=== PATIENT | female | born 1955 | race Caucasian/White ===

== ENCOUNTER 2016-12-01 05:18 | Outpatient (CLI) | payer OTHER ==
[~2016-12-01] VITALS: Ht 157.5 cm; Wt 83.4 kg
--- NOTE | ~2016-12-01 | HEMODYNAMI ---
PATIENT:ANU RUCKER MEDICAL RECORD: [id number] : 55 LOCATION:[facility] ADMISSION DATE: 12/01/16 Generatedon:12/01/201611:31 Patient name: ANU RUCKER Patient #: [id number] SSN: : Date of study: 12/01/2016 Page: Of Hemodynamic Procedure Report Patient Data Patient Demographics Procedure consent was obtained First Name: ANU Gender: Female Last Name: : 1955 Middle Initial: D Age: 61 year(s) Patient #: [id number] Race: Additional ID: [id number] Contact details Address: [address] [address] State: [place] City: [place] Zip code: [address] Past Medical History Allergies Allergen Reaction Date Comments Reported Other allergy 08/09/2015 NSAIDS, PCN Admission Admission Data Admission Date: 12/01/2016 Admission Time: 5:18 Procedure Procedure Types Cath Procedure Peripheral Cath Diagnostic Procedure Miscellaneous Procedure Description Procedure Date Procedure Date: 12/01/2016 Procedure Start Time: 8:37 Procedure Staff Name Function Felipe Bustillos MD Performing Physician Laverne David RT Scrub Alyssia Rucker RN Nurse Deirdre Lui RN Nurse Christophe Davis RT Monitor Procedure Data Cath Procedure Fluoroscopy Diagnostic fluoroscopy Total fluoroscopy Time: time: 25.2 min 25.2 min Diagnostic fluoroscopy Total fluoroscopy dose: 849 dose: 849 mGy mGy Contrast Material Contrast Material Type Amount (ml) Isovue 300 88 Entry Location Entry Primary Successful Side Size Upsize 1 Upsize Entry Closure Brown ccessful Closure Location (Fr) (Fr) 2 (Fr) Remarks Device Remarks Femoral Right 5 Fr 6 Fr Exoseal artery Mid-Length Diagnostic catheters Device Type Used For End Catheter Placement Diagnostic 5Fr IMT Catheter Procedure Medications Medication Administration Route Dosage Fentanyl I.V. 50 mcg Versed I.V. 1 mg Heparin Bolus I.V. 5000 units Fentanyl I.V. 50 mcg Versed I.V. 1 mg Nitroglycerin IC/IA I.A. 250 mcg Nitroglycerin IC/IA I.A. 200 mcg Fentanyl I.V. 50 mcg Versed I.V. 1 mg Fentanyl I.V. 50 mcg Versed I.V. 1 mg Heparin Bolus I.V. 2000 units Nitroglycerin IC/IA I.A. 300 mcg Hemodynamics Rest Heart Rate: 67 (bpm) Snapshots Pre Cath Intra NCS Post Cath Vital Signs Time Heart Resp SPO2 NIBP (mmHg) Rhythm Pain Sedation Rate (ipm) (%) Status Level (bpm) 8:18:03 68 17 99 153/84(143) NSR 0 (11) 10(A) , No pain 8:22:19 94 23 99 141/85(119) NSR 0 (11) 10(A) , No pain 8:26:28 68 25 98 141/87(125) NSR 0 (11) 10(A) , No pain 8:30:36 69 23 99 139/92(122) NSR 0 (11) 10(A) , No pain 8:34:46 70 24 99 146/86(123) NSR 0 (11) 10(A) , No pain 8:39:00 76 15 98 139/119(135) NSR 0 (11) 10(A) , No pain 8:43:10 74 23 96 152/91(132) NSR 0 (11) 9(A) , No pain 8:47:24 71 23 94 149/92(131) NSR 0 (11) 9(A) , No pain 8:51:36 70 26 94 143/87(117) NSR 0 (11) 9(A) , No pain 8:55:50 72 22 93 142/80(124) NSR 0 (11) 9(A) , No pain 9:00:02 69 18 97 142/87(119) NSR 0 (11) 10(A) , No pain 9:04:12 74 16 94 150/96(122) NSR 0 (11) 9(A) , No pain 9:08:28 71 14 94 137/84(116) NSR 0 (11) 9(A) , No pain 9:12:40 70 14 96 133/78(108) NSR 0 (11) 9(A) , No pain 9:16:47 72 15 96 137/85(117) NSR 0 (11) 9(A) , No pain 9:20:59 70 16 96 129/80(100) NSR 0 (11) 9(A) , No pain 9:25:09 69 16 97 130/79(110) NSR 0 (11) 9(A) , No pain 9:29:19 67 15 96 126/77(109) NSR 0 (11) 9(A) , No pain 9:33:25 68 16 97 125/82(104) NSR 0 (11) 9(A) , No pain 9:37:33 66 15 97 132/77(109) NSR 0 (11) 9(A) , No pain 9:41:43 66 14 97 128/78(102) NSR 0 (11) 9(A) , No pain 9:45:46 71 22 97 147/98(119) NSR 0 (11) 9(A) , No pain 9:49:58 74 21 96 159/102(137) NSR 0 (11) 9(A) , No pain 9:54:14 73 18 96 168/96(143) NSR 0 (11) 9(A) , No pain 9:58:33 72 13 95 154/99(134) NSR 0 (11) 9(A) , No pain 10:02:48 72 14 94 142/87(119) NSR 0 (11) 9(A) , No pain 10:06:58 69 14 95 150/89(112) NSR 0 (11) 9(A) , No pain 10:11:14 68 14 94 136/86(110) NSR 0 (11) 9(A) , No pain 10:15:24 66 13 94 142/84(120) NSR 0 (11) 9(A) , No pain 10:19:36 67 15 94 143/84(119) NSR 0 (11) 9(A) , No pain 10:23:48 69 15 95 144/84(121) NSR 0 (11) 9(A) , No pain 10:28:02 66 15 94 135/85(111) NSR 0 (11) 9(A) , No pain 10:32:12 68 15 96 143/86(116) NSR 0 (11) 9(A) , No pain 10:36:24 67 14 96 139/86(120) NSR 0 (11) 9(A) , No pain 10:40:34 66 14 97 146/87(125) NSR 0 (11) 9(A) , No pain 10:44:46 65 14 97 149/92(129) NSR 0 (11) 9(A) , No pain 10:48:58 63 15 98 152/92(130) NSR 0 (11) 9(A) , No pain 10:53:10 76 21 98 164/97(137) NSR 0 (11) 9(A) , No pain 10:57:26 72 23 96 169/101(143) NSR 0 (11) 9(A) , No pain 11:01:44 74 22 96 161/98(132) NSR 0 (11) 9(A) , No pain 11:06:00 71 21 97 170/102(136) NSR 0 (11) 10(A) , No pain 11:10:20 77 19 97 166/102(145) NSR 0 (11) 10(A) , No pain 11:14:38 78 19 96 181/113(142) NSR 0 (11) 10(A) , No pain 11:19:00 80 24 95 172/98(135) NSR 0 (11) 10(A) , No pain 11:23:20 73 24 96 168/100(136) NSR 0 (11) 10(A) , No pain 11:27:38 96 171/109(145) NSR 0 (11) 10(A) , No pain Medications Time Medication Route Dose Verified Delivered Reason Notes Ef fectiveness by by 8:37:00 Fentanyl I.V. 50 Deirdre Deirdre for sedation mcg Sania Lui RN RN 8:37:08 Versed I.V. 1 mg Deirdre Deirdre for sedation Sania Lui RN RN 8:58:34 Heparin Bolus I.V. 5000 Deirdre Deirdre for units Sania zhu RN RN 9:01:20 Fentanyl I.V. 50 Deirdre Deirdre for sedation mcg Sania Lui RN RN 9:01:29 Versed I.V. 1 mg Deirdre Deirdre for sedation Sania Lui RN RN 9:16:52 Nitroglycerin I.A. 250 Deirdre Felipe for IC/IA mcg Sania Bustillos anticoagulation MYLA CESPEDES 9:28:03 Nitroglycerin I.A. 200 Deirdre Felipe for IC/IA mcg Sania Bustillos anticoagulation MYLA CESPEDES 9:44:59 Fentanyl I.V. 50 Deirdre Deirdre for sedation mcg Sania Lui RN, RN 9:45:10 Versed I.V. 1 mg Deirdre Felipe for sedation Sania Bustillos RN, MD 9:53:18 Fentanyl I.V. 50 Deirdre Deirdre for sedation mcg Sania Lui RN RN 9:53:38 Versed I.V. 1 mg Deirdre Deirdre for sedation Sania Lui RN RN 10:21:55 Heparin Bolus I.V. 2000 Deirdre Deirdre for units Sania Lui anticoagulation RN MYLA 10:24:19 Nitroglycerin I.A. 300 Deirdre Felipe for IC/IA mcg Sania Bustillos anticoagulation MYLA CESPEDES Procedure Log Time Note 7:59:19 Alyssia Rucker RN sent for patient. Start room use. 7:59:29 Time tracking: Regular hours 7:59:34 Plan of Care:Hemodynamics will remain stable., Cardiac rhythm will remain stable., Comfort level will be maintained., Respiratory function will remain adequate., Patient/ family verbilizes understanding of procedure., Procedure tolerated without complication., Recovers from procedure without complications.. 7:59:42 Patient received from Outpatients to IR Alert and oriented. Tansferred to table in Supine position. 7:59:43 Correct patient and procedure confirmed by team. 7:59:45 Signed procedure consent form obtained from patient. 7:59:46 ECG and BP/O2 sat monitors applied to patient. 7:59:48 Full Disclosure recording started 7:59:49 - 7:59:52 H&P Date Dictated: 12/01/2016 H&P Addendum completed by physician on day of procedure. (MUST COMPLETE FOR ALL OUTPATIENTS). 7:59:52 Pre-procedure instructions explained to patient. 7:59:53 Pre-op teaching completed and patient verbalized understanding. 7:59:55 Family unavailable. 7:59:56 Patient NPO since Midnight. 8:00:01 Is the patient allergic to Iodine/contrast media? No. 8:00:12 Is patient on blood thinner?No 8:00:14 Patient diabetic? Yes. 8:00:15 - 8:00:16 ----Pre-sedation anethsthesia assessment.---- 8:00:19 Previous problem with sedation/anesthesia? No ? 8:00:23 Snore? Yes 8:00:25 Sleep apnea? No 8:00:26 Deviated septum? No 8:00:28 Opens mouth fully? No 8:00:29 Sticks out tongue? Yes 8:00:34 Airway obstruction? Yes copd 8:00:39 Dentures? Yes out 8:00:53 Pre procedure: right dorsailis pedis pulse Doppler 8:00:55 Pre procedure: left dorsailis pedis pulse Doppler 8:00:58 Pre procedure: right posterior tibial pulse Doppler 8:01:01 Pre procedure: left posterior tibial pulse Doppler 8:01:07 Patient pain scale 0/10 no pain. 8:01:18 Use device set IR Diagnostic 8:01:19 Sterile Angiographic Pack opened to sterile field. 8:01:19 Bag Decanter opened to sterile field. 8:01:20 Acist Manifold opened to sterile field. 8:01:21 Acist Hand Control opened to sterile field. 8:01:22 Acist Syringe opened to sterile field. 8:13:38 Sharps counted by scrub and verified by R.N. 8:13:39 Alarms reviewed by R. N. 8:13:42 Bilateral groins area was prepped with chlora-prep and draped in steril e fashion 8:16:55 Vital chart was started 8:16:56 Baseline sample Acquired. 8:17:00 Rhythm: sinus rhythm 8:36:03 Sedation plan: IV Moderate Sedation Versed, Fentanyl 8:36:41 Physician arrived 8:36:42 --------ALL STOP TIME OUT------ 8:36:44 Final Timeout: patient, procedure, and site verified with staff and physician. All members of the team are in agreement. 8:36:46 Bilateral groins site verified by team. 8:36:59 Physical assessment completed. ASA score P 3 - A patient with severe systemic disease as per Felipe Bustillos MD. 8:37:00 Fentanyl 50 mcg I.V. was administered by Deirdre Lui RN; for sedation; 8:37:08 Versed 1 mg I.V. was administered by Deirdre Lui RN; for sedation; 8:37:46 Procedure started. 8:37:54 Local anesthetic to right femoral artery with Lidocaine 1% by Felipe Bustillos MD.INITIAL ACCESS ONLY 8:40:41 A 5 Fr sheath was inserted into the Right Femoral artery 8:40:45 St Jc 5FR Sheath opened to sterile field. 8:40:47 Cook BENTSON 145cm guide wire opened to sterile field. 8:40:47 Micropuncture VSI 4FR kit opened to sterile field. 8:40:48 TUBING, CONTRAST INJCTN HI PRES opened to sterile field. 8:40:49 Cook BARNEY 260 guide wire opened to sterile field. 8:49:15 Sheath upsized to a 6 Fr Mid-Length. 8:49:32 Terumo 6Fr [place] Destination Sheath opened to sterile field. 8:49:36 A Diagnostic 5Fr IMT Catheter was advanced over the wire and used for . 8:53:32 BasixTOUCH Inflation Syringe opened to sterile field. 8:56:33 CXI SUPPORT .035 135 CM STR catheter opened to sterile field. 8:58:34 Heparin Bolus 5000 units I.V. was administered by Deirdre Lui RN; for anticoagulation; 9:01:20 Fentanyl 50 mcg I.V. was administered by Deirdre Lui RN; for sedation; 9:01:29 Versed 1 mg I.V. was administered by Deirdre Lui RN; for sedation; 9:06:16 Terumo ANGLE 260cm glide wire opened to sterile field. 9:10:43 [place] Sci Choice PT Extra Support J 300cm .014 gu opened to sterile field. 9:14:44 Turbohawk 1 Small Atherectomy catheter opened to sterile field. 9:16:52 Nitroglycerin IC/IA 250 mcg I.A. was administered by Felipe Bustillos MD; for anticoagulation; 9:28:03 Nitroglycerin IC/IA 200 mcg I.A. was administered by Felipe Bustillos MD; for anticoagulation; 9:36:32 Inflation number: 1 A IN.PACT Admiral 5 x 150 balloon was prepped and advanced across the Distal Superficial Femoral, Right, then inflated to 0 LISA for 0:00 (min:sec). 9:44:59 Fentanyl 50 mcg I.V. was administered by Deirdre Lui RN; for sedation; 9:45:10 Versed 1 mg I.V. was administered by Felipe Bustillos MD; for sedation; 9:48:07 Inflation number: 1 A IN.PACT Admiral 6 x 150 balloon was prepped and advanced across the Mid Superficial Femoral, Right, then inflated to 0 LISA for 0:00 (min:sec). 9:52:30 Inflation number: 1 A IN.PACT Admiral 6.0 x 80 x 135 DCB Balloon was prepped and advanced across the Proximal Superficial Femoral, Right, then inflated to 0 LISA for 0:00 (min:sec). 9:53:18 Fentanyl 50 mcg I.V. was administered by Deirdre Lui RN; for sedation; 9:53:38 Versed 1 mg I.V. was administered by Deirdre Lui RN; for sedation; 10:03:01 Zilver PTX 6 x 60 stent was deployed across Mid Superficial Femoral, Right . 10:21:55 Heparin Bolus 2000 units I.V. was administered by Deirdre Lui RN; for anticoagulation; 10:24:19 Nitroglycerin IC/IA 300 mcg I.A. was administered by Felipe Bustillos MD; for anticoagulation; 10:26:45 Copilot Bleedback Control Valve opened to sterile field. 10:36:34 Zilver PTX 6 x 100 stent was deployed across Proximal Superficial Femoral, Right . 10:40:18 Inflation number: 2 A Saber 5.0 X 4 X 150 balloon was prepped and advanced across the Mid Superficial Femoral, Right, then inflated to 0 LISA for 0:00 (min:sec). 10:47:48 St Jc 6Fr sheath opened to sterile field. 10:48:22 MYNX GRINDER NEEDLE TIP 6FR/7FR opened to sterile field. 10:50:31 Sheath removed intact; hemostasis achieved with Exoseal to the Right Femoral artery. 10:50:34 Procedure ended.(Physican Out) 10:52:41 Fluoroscopy time 25.20 minutes. 10::47 Fluoroscopy dose: 849 mGy 10::47 Flurop Dose total: 849 10::52 Contrast amount:Isovue 300 88ml. 10:52:54 Sharps counted by scrub and verified by R.N. 10:53:02 Insertion/operative site no bleeding no hematoma. 10:53:18 Post-op/insertion site Left Femoral artery dressed using a 4 x 4 and Tegaderm. 10:53:26 Post left femerol artery:stable 10:53:28 Post Procedure Pulses reassessed and unchanged 10:53:32 Post-procedure physical assessment completed. ASA score P 3 - A patient with severe systemic disease as per Felipe Bustillos MD. 10:53:35 Post procedure rhythm: unchanged. 11:29:36 Post procedure instruction explained to patient.Patient verbalizes understanding. 11:29:37 Procedure and supply charges have been captured, reviewed, submitted an d are correct. 11:29:40 Report given to [facility]. 11:29:43 Patient transfered to [facility] with Bed. 11:31:36 Vital chart was stopped Intervention Summary Intervention Notes Time ActionType Lesion and Equipment Action# Pressure Duration Attributes Used 9:36:32 Inflate Distal IN.PACT 1 0 00:00 balloon Superficial Admiral 5 Femoral, x 150 Right balloon 9:48:07 Inflate Mid IN.PACT 1 0 00:00 balloon Superficial Admiral 6 Femoral, x 150 Right balloon 9:52:30 Inflate Proximal IN.PACT 1 0 00:00 balloon Superficial Admiral Femoral, 6.0 x 80 Right x 135 DCB Balloon 10:03:01 Deploy self Mid Zilver 1 expanding Superficial PTX 6 x stent Femoral, 60 stent Right 10:36:34 Deploy self Proximal Zilver 1 expanding Superficial PTX 6 x stent Femoral, 100 stent Right 10:40:18 Inflate Mid Saber 5.0 2 0 00:00 balloon Superficial X 4 X 150 Femoral, balloon Right Device Usage Item Name Manufacture Quantity Catalog Number Hospital Part [facility] nimal Lot# / Charge Number Stock Stock Serial# Code Sterile Hungry Horse 1 [id number] [id number] 5 Angiographic Health Pack Bag Decanter Microtek 1 2001S 220227 93022 423336 5 Medical Inc. Acist Acist 1 16612 701777 275524 164669 5 Manifold Medical Systems Inc Acist Hand Acist 1 92048 005272 167098 711922 5 Control Medical Systems Inc Acist Syringe Acist 1 65816 773817 992756 994175 [address] Jc 1 266157 975466 813694 5 [id number] Sheath [facility] 1 L44635 917620 065951 5 [id number] 145cm guide wire Micropuncture VSI VASCULAR 1 7266V 898332 937272 5 VSI 4FR kit SOLUTIONS TUBING, Merit 1 [id number] 216563 254884 400200 5 CONTRAST Medical INJCTN HI PRES [facility] [place] [place] 1 J05545 851039 991323 5 [id number] 260 guide wire Terumo 6Fr Terumo 1 RSR01 227998 34105 237820 5 [place] Destination Sheath Diagnostic [place] 1 [id number] 627188 232483 07258 5 5Fr IMT Scientific Catheter BasixTOUCH Merit 1 QJ6424 815480 849719 618086 5 [id number] Inflation Medical Syringe CXI SUPPORT [facility] 1 L60249 626488 092429 5 [id number] .035 135 CM STR catheter Terumo ANGLE Terumo 1 QX2112 317949 342827 092744 5 260cm glide wire [place] Sci [place] 1 [id number] 691097 331721 234688 5 [id number] Choice PT Scientific Extra Support J 300cm .014 gu Turbohawk 1 Ev3 1 H1-S 578016 0734205 697869 5 Small Atherectomy catheter IN.PACT Medtronic 1 [id number] 412638 8853673 175553 5 [id number] Admiral 5 x 150 balloon IN.PACT Medtronic 1 [id number] 912659 9138307 005673 5 [id number] Admiral 6 x 150 balloon IN.PACT Medtronic 1 [id number] 491580 854595 699162 5 [id number] Admiral 6.0 x 80 x 135 DCB Balloon Zilver PTX 6 [facility] 1 G67646 021304 605674 721859 5 [id number] x 60 stent Copilot [place] 1 6239881 094396 843712 872202 5 Bleedback Vascular Control Valve Zilver PTX 6 [facility] 1 O27470 275950 200532 455423 5 [id number] x 100 stent Saber 5.0 X 4 Cardinal 1 [id number] 797594 517425 5 X [address] Jc [address] St Jc 1 028642 249888 185294 5 [id number] sheath MYNX GRINDER NEEDLE TIP Access 1 OU7735 672897 237429 5 [id number] 6FR/7FR Closure Signature Audit [place] Stage Time Signature Unsigned Intra-Procedure 12/01/2016 Christophe 11:31:33 AM Ryan RT (R) (CV) Signatures Monitor : Christophe Signature : Ryan RT Date : Time : [id number] [place] [address]
[~2016-12-01 05:18] MED LIST: ASPIRIN81 MG PO; BENZONATATE200 MG PO; CHERATUSSIN AC473 ML PO; IPRAT-ALBUT 0.5-3 ML UPD; LOPRESSOR25 MG PO; MIRAPEX0.5 MG PO; NICODERM C1 PATCH .3 TRANSDERM; PLAVIX75 MG PO; PRAVACHOL20 MG PO; PREDNISONE50 MG PO; PRILOSEC20 MG PO; SINGULAIR10 MG PO; STERAPRED 5MG 125 MG PO; VENTOLIN HFA18 GM INH; VIBRAMYCIN 100100 MG PO; ZESTRIL40 MG PO
[2016-12-01 06:30] LABS: BASOPHILS 0.2 % (0.0-2.0); EOSINOPHILS 0.1 % (0-7); HEMATOCRIT 44.6 % (36.0-48.0); IMMATURE GRANULOCYTES 0.4 % (0-5); LYMPHOCYTES 14.2 % (15-50); MCH 28.3 pg (26.0-34.0); MCHC 31.4 g/dL (31.0-37.0); MCV 90.3 fL (80.0-100.0); MEAN PLATELET VOLUME 11.2 fL (7.4-10.4); NEUTROPHILS 76.1 % (40-80); PLATELET COUNT 331 10x3/uL (130-400); RBC 4.94 10x6/uL (4.00-5.40); RDW 14.9 % (11.5-14.5); WBC 13.3 10x3/uL (4.8-10.8)
[2016-12-01 06:43] LABS: ANION GAP 12.4 mmol/L (8-16); CARBON DIOXIDE 28.6 mmol/L (21.0-32.0)
[2016-12-01 06:48] LABS: INR 0.95 (0.85-1.17); PROTIME 12.5 SECONDS (11.6-15.0)
[2016-12-01] MEDS ORDERED: EFFIENT10 MG PO (07:07)
[2016-12-01] MEDS ORDERED: OXYBUTYNIN CHLOR5 MG PO (07:08)
[2016-12-01] MEDS ORDERED: MIRAPEX0.5 MG PO (07:09)
[2016-12-01] MEDS ORDERED: FUROSEMIDE20 MG PO (07:09)
[2016-12-01] MEDS ORDERED: DOXYCYCLINE HY100 M2 PO (07:10)
[2016-12-01 07:24] VITALS: BP 124/78; BMI 33.9
--- NOTE | 2016-12-01 12:27 | NUR ---
PT ARRIVED TO ROOM VIA BED WITH SPECIALS NURSES AT BEDSIDE. VSS AND BEING MONITERED Q15 PER PROTOCOL. PT HAS L.HAND PIV WITH HEPARIN DRIP INFUSING @8ML/HR, DRSG CDI, SWAB CAPS IN USE. PT HAS DRSG TO L.GROIN CDI NO S/S OF BLEEDING OR HEMATOMA NOTED. PERIPHERAL PULSES INTACT STRONG PULSE PALPABLE BILATERALLY. PT IS VERY DROWSY FROM SEDATION. PT AND FAMILY AWARE FOR HER TO REMAIN FLAT FOR 4 HOURS. PT DENIES ANY PAIN OR NEEDS AT THIS TIME. CL IN REACH, BED IN LOWEST, SIDE RAILS X2. WILL CPOC.
--- NOTE | 2016-12-01 13:36 | NUR ---
PT TOO DROWSY TO TAKE HER MEDS. STATES SHE WANTS TO TRY LATER. PERIPHERAL PULSES INTACT. L.GROIN DRSG CDI NO S/S OF HEMATOMA, SCANT AMOUNT OF BLOOD NOTED ABOUT A DROP IN SIZE. VSS. AT BEDSIDE AND PT LYING FLAT. WILL CTM.
--- NOTE | 2016-12-01 16:00 | NUR ---
VSS. PERIPHERAL PULSES INTACT. L.GROIN DRSG CDI NO S/S OF HEMATOMA NOTED. PTS 4 HOUR FLAT LAY IS COMPLETE. PT READY TO USE RESTROOM. ASSISTED HER TO BR AND SHE VOIDED WITHOUT ANY DIFFICULTIES. PT RESTING WITH HUNGRY AND WANTING TO EAT. TRAY HAS BEEN ORDERED. PT DENIES ANY FURTHER NEEDS AT THIS TIME. CL IN REACH, BED IN LOWEST, SIDE RAILS X2. WILL CTM.
[2016-12-01 16:32] VITALS: BP 156/88
[2016-12-01 18:17] VITALS: BP 162/95; Ht 157.5 cm; Wt 83.4 kg
--- NOTE | 2016-12-01 19:00 | NUR ---
RECEIVED REPORT AND ASSUMED PT CARE FROM DAY SHIFT NURSE @ THIS TIME.
[2016-12-01 21:18] VITALS: BP 127/61
[2016-12-02 00:23] VITALS: BP 136/73
[2016-12-02 04:25] VITALS: BP 140/68
[2016-12-02 05:45] LABS: HEMATOCRIT 46.8 % (36.0-48.0); HEMOGLOBIN 14.4 g/dL (12-16); MCH 28.2 pg (26.0-34.0); MCHC 30.8 g/dL (31.0-37.0); MCV 91.8 fL (80.0-100.0); MEAN PLATELET VOLUME 11.1 fL (7.4-10.4); RBC 5.1 10x6/uL (4.00-5.40); RDW 14.8 % (11.5-14.5); WBC 12.1 10x3/uL (4.8-10.8)
--- NOTE | 2016-12-02 06:40 | NUR ---
PT PTT 35.3. HEPARIN 3000 UNITS IV GIVEN AND HEPARIN GTT INCREASED TO 1000 UNITS/HR PER NOMOGRAM.
--- NOTE | 2016-12-02 07:33 | NUR ---
AWAKE AND ALERT RESTING QUIETLY DENIES ANY NEEDS NAD NOTED
--- NOTE | 2016-12-02 07:41 | NUR ---
ASSESSMNET COMPLETED. TELEMERTY SHOWS ST. 02 AT 3 L/M PER NC. HEPARIN AT 1000 UNITS HR INFUSING TO LEFT HAND. SR UP WITH CALL LIGHT IN REACH WILL MONITOR
[2016-12-02 09:04] VITALS: BP 130/81
[2016-12-02 12:23] VITALS: BP 131/69
--- NOTE | 2016-12-02 12:52 | NUR ---
AMBULATING IN HEATH WAY. DENIES ANY NEEDS.
--- NOTE | 2016-12-02 16:18 | NUR ---
PT DISCHARGED. INSTRUCTIONS GIVEN TO PT. TO PRIVATE CAR PER WHEEL CHAIR
== END 2016-12-02 16:29 | disposition home or self-care (01) ==
LOC: D.M2 05:18 → D.OPS 05:18 → D.RAD 08:00 → D.SP 08:00 → D.OPS 08:00 → D.M2 12:15 → D.OPS 12-02 16:29 → D.RAD 12-04 08:00
PROVIDERS: Radiology Diagnostic Radiology
DX: I70.221 Atherosclerosis of native arteries of extremities with rest pain, right leg (principal); I70.92 Chronic total occlusion of artery of the extremities; F17.200 Nicotine dependence, unspecified, uncomplicated; Z79.82 Long term (current) use of aspirin; Z79.891 Long term (current) use of opiate analgesic; Z79.52 Long term (current) use of systemic steroids; Z79.899 Other long term (current) drug therapy; Z88.0 Allergy status to penicillin; Z88.8 Allergy status to other drugs, medicaments and biological substances

== ENCOUNTER → 2017-07-17 16:15 | Outpatient (CLI) | payer OTHER ==
[2016-12-01 18:17] VITALS: BMI 33.9
[~2017-07-17 16:15] MED LIST changes: +ANORO ELLIPTA1 EACH INH; +ASCORBIC ACID500 MG PO; +BACLOFEN20 M1 PO; +COMBIVENT RESPIM4 GM INH; +DOXYCYCLINE HY100 M2 PO; +EFFIENT10 MG PO; +FUROSEMIDE20 MG PO; +KLOR-CON 1010 MEQ PO; -LOPRESSOR25 MG PO; +METOPROLOL TART50 MG PO; +OXYBUTYNIN CHLOR5 MG PO; +PROAIR HFA8.5 GM INH; +PROZAC20 MG PO; +VITAMIN E100 UNIT PO
== END | disposition home or self-care (01) ==
LOC: D.LABREF 16:15
DX: N39.0 Urinary tract infection, site not specified (principal)

== ENCOUNTER → 2017-07-19 17:44 | Outpatient (CLI) | payer OTHER ==
[2016-12-01 18:17] VITALS: BMI 33.9
== END | disposition home or self-care (01) ==
LOC: D.MAMMO 15:00
DX: Z12.31 Encounter for screening mammogram for malignant neoplasm of breast (principal)

== ENCOUNTER 2017-08-15 05:19 | Day surgery (SDC) | payer OTHER ==
[2017-08-14 12:55] LABS: BASOPHILS 0.2 % (0-2); EOSINOPHILS 1.5 % (0-7); HEMATOCRIT 47.4 % (36.0-48.0); IMMATURE GRANULOCYTES 0.5 % (0-5); LYMPHOCYTES 21.2 % (15-50); MCHC 31.6 g/dL (31.0-37.0); MCV 91.5 fL (80.0-100.0); MEAN PLATELET VOLUME 10.4 fL (7.4-10.4); MONOCYTES 5.5 % (2-11); NEUTROPHILS 71.1 % (40-80); PLATELET COUNT 285 10x3/uL (130-400); RBC 5.18 10x6/uL (4.00-5.40); RDW 15.7 % (11.5-14.5); WBC 11.8 10x3/uL (4.8-10.8)
[2017-08-14 13:10] LABS: ANION GAP 9.1 mmol/L (8-16); CALCIUM 8.8 mg/dL (8.5-10.1); CARBON DIOXIDE 30.8 mmol/L (21.0-32.0); POTASSIUM - SERUM 3.9 mmol/L (3.5-5.1)
[2017-08-14 13:21] LABS: APTT 28.2 SECONDS (22.8-39.4); INR 0.93 (0.85-1.17); PROTIME 12.1 SECONDS (11.6-15.0)
[~2017-08-15] VITALS: Ht 160 cm; Wt 79.8 kg
[~2017-08-15 05:19] MED LIST changes: -ANORO ELLIPTA1 EACH INH; -ASCORBIC ACID500 MG PO; -BACLOFEN20 M1 PO; -COMBIVENT RESPIM4 GM INH; -KLOR-CON 1010 MEQ PO; -PROAIR HFA8.5 GM INH; -PROZAC20 MG PO; -VITAMIN E100 UNIT PO
[2017-08-15] MEDS ORDERED: ANORO ELLIPTA1 EACH INH (09:02)
[2017-08-15] MEDS ORDERED: PROAIR HFA8.5 GM INH (09:03)
[2017-08-15] MEDS ORDERED: KLOR-CON 1010 MEQ PO (09:03)
[2017-08-15] MEDS ORDERED: PLAVIX75 MG PO (09:04)
[2017-08-15] MEDS ORDERED: MIRAPEX0.5 MG PO (09:04)
[2017-08-15] MEDS ORDERED: BENZONATATE200 MG PO (09:05)
[2017-08-15 09:17] VITALS: BP 118/79; Ht 160 cm; Wt 79.8 kg
--- NOTE | 2017-08-15 14:22 | NUR ---
1210 DISCHARGE INSTRUCTIONS COMPLETE. PT HAS NO QUESTIONS OR CONCERNS AT THIS TIME. ESCORTED OUT BY VOLUNTEER.
--- NOTE | 2017-08-15 16:52 | OP ---
PATIENT NAME: ANU BAR MEDICAL RECORD: [id number] :55 LOCATION:[facility] ADMISSION DATE: SURGEON: JOSE HERRERA MD DATE OF OPERATION: 08/15/2017 DATE OF SURGERY: 08/15/2017 SURGEON: Jose Herrera MD ANESTHESIA: MAC by Dr. Suero. PREOPERATIVE DIAGNOSES: Urethral stricture, incomplete bladder emptying, urge urinary incontinence. PROCEDURES: Cystoscopy and urethral dilation. FINDINGS: Urethral stricture. Trabeculated bladder. Single ureteral orifice on the right side. Duplex ureteral orifices on the left side. No bladder tumors. Diffuse bladder inflammation. BLOOD LOSS: None. CLINICAL HISTORY: This is a 61-year-old female, who has been complaining of urge urinary incontinence for the past 8 months. She still has her uterus in place. She does use Lasix in the day time which caused her to have urinary frequency. However, she has urge incontinence and she has been using oxybutynin to try to control this. Also, she is a heavy smoker of 1-1/2 packs per day since age 25. When we saw her in the office, she had a postvoid residual of 244 mL. We had her try to avoid a second time and her postvoid residual came down to 136 mL. I felt that perhaps she had a urethral stricture leading to overflow incontinence and adding to the urinary frequency. When I examined her, there was no stress incontinence seen even with 244 mL in her bladder. The oxybutynin was also stopped as it was making the incomplete bladder emptying worse. She comes today for a cystoscopy and urethral stricture dilation. SHE IS ALLERGIC TO PENICILLIN. She was given Levaquin IV stone circular sawyer to the OR. DESCRIPTION OF PROCEDURE: The patient was given IV sedation. She was placed in the dorsal lithotomy position and prepped and draped. A series of urethral sounds was used to dilate the urethra from 12-Luxembourgish to 30-Luxembourgish in size. There was some resistance initially to the passage of the sounds. We then performed cystoscopy with a 21-Luxembourgish cystoscope and 30-degree lens. Findings are as outlined above. There are 2 ureteral orifices on the left side. The bladder is trabeculated indicating that there was bladder outlet obstruction in the past. Also, the dome of the bladder shows some bladder inflammation and this may be responsible for her urinary urge incontinence also. She might benefit from treatment of Rimso for interstitial cystitis. The bladder was emptied through the cystoscope and the patient was brought to the preoperative holding area. I will see her in followup in 1-2 weeks' time. TRANSINT:[id number] Voice Confirmation ID: [id number] DOCUMENT ID: [id number] OPERATIVE REPORT [id number] ANU BAR, JOSE Ingram MD at 1652 CC: [id number] DICTATION DATE: 08/15/17 1120 WHITE METAL CORROSION PROOFER: 08/15/17 1315 [facility] 08/15/17 [address] [place] [address]
== END 2017-08-15 12:10 | disposition home or self-care (01) ==
LOC: D.OPS 05:19 → D.PAN 10:30 → D.OPS 12:10
PROVIDERS: Anesthesiology
DX: N35.9 Urethral stricture, unspecified (principal); N39.41 Urge incontinence; R33.9 Retention of urine, unspecified; F17.200 Nicotine dependence, unspecified, uncomplicated; I10 Essential (primary) hypertension; J44.9 Chronic obstructive pulmonary disease, unspecified; Z01.812 Encounter for preprocedural laboratory examination

== ENCOUNTER 2017-10-10 05:24 | Day surgery (SDC) | payer OTHER ==
[2017-10-09 14:45] LABS: BASOPHILS 0.3 % (0-2); HEMATOCRIT 48.1 % (36.0-48.0); HEMOGLOBIN 15.6 g/dL (12-16); IMMATURE GRANULOCYTES 0.3 % (0-5); LYMPHOCYTES 23.2 % (15-50); MCH 28.8 pg (26.0-34.0); MCHC 32.4 g/dL (31.0-37.0); MCV 88.9 fL (80.0-100.0); MEAN PLATELET VOLUME 11.2 fL (7.4-10.4); MONOCYTES 10.4 % (2-11); NEUTROPHILS 63.8 % (40-80); PLATELET COUNT 272 10x3/uL (130-400); RBC 5.41 10x6/uL (4.00-5.40); RDW 14.6 % (11.5-14.5); WBC 8.9 10x3/uL (4.8-10.8)
[2017-10-09 14:56] LABS: APTT 27.7 SECONDS (22.8-39.4); INR 1.05 (0.85-1.17); PROTIME 13.3 SECONDS (11.6-15.0)
[2017-10-09 15:00] LABS: ANION GAP 12.9 mmol/L (8-16); CALCIUM 8.8 mg/dL (8.5-10.1); CARBON DIOXIDE 28.2 mmol/L (21.0-32.0); POTASSIUM - SERUM 4.1 mmol/L (3.5-5.1)
[~2017-10-10] VITALS: Ht 160 cm; Wt 76.2 kg
--- NOTE | ~2017-10-10 | OP ---
PATIENT NAME: ANU BAR MEDICAL RECORD: [id number] :55 LOCATION:D.OPS ADMISSION DATE: SURGEON: KLAUDIA HERRERA MD DATE OF OPERATION: 10/10/2017 SURGEON: Klaudia Herrera MD ANESTHESIA: MAC by Jerry Nunes CRNA. PREOPERATIVE DIAGNOSIS: Urge urinary incontinence. PROCEDURES: Cystoscopy and intravesical Botox injection of 100 units. FINDINGS: Single ureteral orifices bilaterally with diffuse bladder inflammation. No bladder tumors. CLINICAL HISTORY: This is a 62-year-old female with urge urinary incontinence. She previously had incomplete bladder emptying and this was treated with cystoscopy and urethral dilation. Even after urethral dilation, she continued to have issues with urge incontinence. She has glaucoma since her 20s and she has not had any ophthalmology visits for some time because she did not have any vision coverage in her insurance. Therefore, I do not know what the status of her glaucoma is and therefore she cannot have any anticholinergic medications to treat the overactive bladder. Also, she cannot afford Myrbetriq. Therefore, we are going to try intravesical Botox injection to control her urge incontinence. She is allergic to NSAIDS and PENICILLIN. She was given Levaquin IV combination presser to the OR. DESCRIPTION OF PROCEDURE: The patient was given IV sedation. She was placed in the dorsal lithotomy position, prepped and draped. Cystoscopic findings are as outlined above. Then, 100 units of Botox was diluted in 10 mL of injectable preservative-free normal saline. Thus each mL of solution has 10 units of Botox in it. Using a Ruiz's needle at 10 different sites, we injected 1 cc of the Botox solution. We avoided the trigone and the ureteral orifices during the injection. At the end of the procedure, the bladder was fully emptied through the cystoscope and everything was removed. The patient was brought back to the preop holding area, and she will be discharged home. I will see her in followup in 2 weeks' time at which time the Botox should have taken effect. I will review her symptoms at that time and also check her postvoid residual. TRANSINT:[id number] Voice Confirmation ID: [id number] DOCUMENT ID: [id number] KLAUDIA HERRERA MD at 0819 CC: [id number] DICTATION DATE: 10/10/17 8672 [facility]: 10/10/17 1345 [facility] 10/10/17 [address] [place] [address]
[~2017-10-10 05:24] MED LIST changes: +ANORO ELLIPTA1 EACH INH; +KLOR-CON 1010 MEQ PO; +PROAIR HFA8.5 GM INH
[2017-10-10] MEDS ORDERED: COMBIVENT RESPIM4 GM INH (08:35)
[2017-10-10] MEDS ORDERED: VITAMIN E100 UNIT PO (08:38)
[2017-10-10] MEDS ORDERED: ASCORBIC ACID500 MG PO (08:38)
[2017-10-10] MEDS ORDERED: OXYBUTYNIN CHLOR5 MG PO (08:38)
[2017-10-10] MEDS ORDERED: PROZAC20 MG PO (08:41)
[2017-10-10] MEDS ORDERED: BACLOFEN20 M1 PO (08:41)
[2017-10-10] MEDS ORDERED: MIRAPEX0.5 MG PO (08:43)
[2017-10-10 08:49] VITALS: BP 110/68; Ht 160 cm; Wt 76.2 kg
== END 2017-10-10 13:20 | disposition home or self-care (01) ==
LOC: D.OPS 05:24 → D.PAN 10:15 → D.OPS 10:15
PROVIDERS: Anesthesiology
DX: N39.41 Urge incontinence (principal); Z88.6 Allergy status to analgesic agent; Z88.0 Allergy status to penicillin; Z01.812 Encounter for preprocedural laboratory examination